=== PATIENT | female | born 1945 | race Caucasian/White ===

== ENCOUNTER 2023-07-08 11:33 | Emergency (ER) | payer MEDICARE, BC, SELFPAY ==
[2023-07-08 12:36] VITALS: BMI 38.9
[2023-07-08 12:49] VITALS: BP 118/91
[2023-07-08] MEDS: NSS 1000 IV (12:59)
[2023-07-08 13:00] VITALS: BP 124/93
[2023-07-08] MEDS: PEPCID 20 MG IV (13:00)
[2023-07-08] MEDS: ZOFRAN 4 MG IV (13:00)
[2023-07-08 13:14] LABS: % Basophils 0.3 % (0-2); % Eosinophils 2.4 % (0-6); % Immature Granulocytes 0.3 % (0-0.5); % Lymphocytes 9.6 % (20.5-51.1); % Monocytes 7.2 % (1.7-9.3); % Neutrophils 80.2 % (42.2-75.2); Absolute Eosinophils 0.2 10^3/uL (0-0.7); Absolute Lymphocytes 0.9 10^3/uL (1.2-3.4); Absolute Monocytes 0.7 10^3/uL (0.1-0.6); Absolute Neutrophils 7.3 10^3/uL (1.4-6.5); Hematocrit 38.7 % (37.0-47.0); Hemoglobin 13.3 g/dL (12.0-16.0); Mean Corp Hgb Conc. 34.4 g/dL (33.0-37.0); Mean Corpuscular Hgb 32.9 pg (27.0-31.0); Mean Corpuscular Volume 95.8 fL (81.0-99.0); Mean Platelet Volume 11.9 fL (7.4-10.4); Nucleated Red Blood Cells % 0 %; Platelet Count 171 10^3/uL (130-400); Red Blood Cell Count 4.04 10^6/uL (4.20-5.40); Red Cell Dist. Width 13.2 % (11.5-14.5); White Blood Cell Count 9.1 10^3/uL (4.8-10.8)
--- NOTE | 2023-07-08 13:16 | ED.GENMED ---
History of Present Illness
General
Chief Complaint: Abdominal Symptoms
Source: patient and family
Exam Limitations: none
Time Seen by Provider: 07/08/23 12:38
Nursing documentation reviewed up to this point in time: agreed with
Travel History
Have you had any contact with someone who has COVID-19?: No
Do you have any symptoms of coronavirus? Fever > 100 degrees, chills, cough, shortness of breath, sore throat, loss of taste or smell, muscle aches, or headache?: No
History of Present Illness
History of Present Illness:
78-year-old female with Yan history of asthma GERD thyroid disorder presenting to the emergency department today with concerns of intermittent vomiting diarrhea over the past 3 days also has had upper abdominal pain. Also noticed that her urine
appeared dark and potentially with blood. She claims that the nausea vomiting was very abrupt in onset 3 days ago and has been improving but does have some ongoing nausea. No vomiting today no significant diarrhea today. No chest pain shortness
of breath no fevers. No blood in the stool.
Past History
Past History
ED Past Medical History: Arrthythmia (paroxysmal a fib), GERD, Hypothyroidism and Other (IBS, paroxysmal atrial fib, hypothyroidism, hysterectomy, cholecystectomy)
Social History
Tobacco: Non-smoker
Alcohol: None
Personal:
Living: alone (family)
Family History
Family History: Negative Diabetes or Hypertension
Review of Systems
Review of Systems
Allergies reviewed?: Yes
All Other Systems: ROS reviewed and negative except as documented in HPI and ROS
Phy Exam
Physical Exam
Physical Exam:
GENERAL: Alert , in no apparent distress
EYE: pupils equal and reactive
NECK: Supple, no significant adenopathy.
ENT: o/p clr, mmm.
CARDIAC: Regular rate and rhythm .
LUNGS: Clear breath sounds bilaterally, no acute respiratory distress, no wheezes/rales/rhonchi
ABDOMEN: Soft, without focal tenderness, no r/g, no cvat
NEUROLOGICAL: Alert and oriented, no focal neuro deficits
SKIN: Warm and dry, skin intact.
MUSCULOSKELETAL: No edema, well perfused.
PSYCH: Normal and appropriate interaction.
Course
Orders/Labs/Results
Orders:
Orders
07/08/23 12:45
0.9% Sodium Chloride 1000 ml [Nss] 1,000 ml IV BOLUS
Famotidine [Pepcid] 20 mg IV NOW STA
Ondansetron Injectable [Zofran] 4 mg IV NOW STA
07/08/23 12:49
Complete Blood Count/With Diff Urgent
Comprehensive Metabolic Panel Urgent
Lipase Urgent
07/08/23 14:08
CT Abd/Pel (IV only)-DH only Urgent
Comment:
Reason For Exam: abd pain
07/08/23 14:16
Urinalysis Reflex To Culture Urgent
Date Specimen was Collected: 07/08/23
Time Specimen was Collected: 14:14
Urine Microscopic Reflex Cult Urgent
Urine Culture Urgent
GENNARO Source: U
Specimen Description:
Date Specimen was Collected: 07/08/23
Time Specimen was Collected: 14:14
Abnormal Lab Results
07/08/23 07/08/23
12:49 14:16
RBC 4.04 L 10^6/uL
(4.20-5.40)
MCH 32.9 H pg
(27.0-31.0)
MPV 11.9 H fL
(7.4-10.4)
Absolute Neuts (auto) 7.3 H 10^3/uL
(1.4-6.5)
Absolute Lymphs (auto) 0.9 L 10^3/uL
(1.2-3.4)
Absolute Monos (auto) 0.7 H 10^3/uL
(0.1-0.6)
Neutrophils % 80.2 H %
(42.2-75.2)
Lymphocytes % 9.6 L %
(20.5-51.1)
Chloride 108 H mmol/L
(98-107)
BUN 25 H mg/dl
(7-17)
Total Bilirubin 2.5 H mg/dl
(0.2-1.3)
AST 78 H U/L
(14-36)
ALT 354 H U/L
(0-35)
Alkaline Phosphatase 236 H U/L
(38-126)
Urine Ketones 1+ A
(Negative)
Ur Occult Blood Reflex 2+ A
(Negative)
Urine Nitrite (Reflex) Positive A
(Negative)
Urine Bilirubin 1+ A
(Negative)
Urine Urobilinogen 3+ A
(Neg - 1+)
Leukocyte Esterase Rfl 1+ A
(Negative)
Urine RBC 7-10 A /HPF
(0-2)
Urine Bacteria (Reflex) Many A
(Negative)
07/08/23 12:49
07/08/23 12:49
Vital Signs
Initial and Last Documented VS:
Initial Vital Signs
Temp Pulse Resp Pulse Ox
97.9 F 93 18 99
07/08/23 11:35 07/08/23 11:35 07/08/23 11:35 07/08/23 11:35
Last Documented Vital Signs
Temp Pulse Resp BP Pulse Ox
97.9 F 101 14 151/110 97
07/08/23 11:35 07/08/23 15:30 07/08/23 15:30 07/08/23 17:00 07/08/23 17:30
MDM/Problems Addressed
MDM/Problems Addressed:
78-year-old female presenting to the emergency department today with concerns of initial abrupt nausea vomiting diarrhea and upper abdominal pain 3 days ago that has been improving but noticed dark discoloration of her urine potential blood in the
urine today. Upon arrival here vital signs normal patient no obvious distress abdomen is soft and benign. Vomiting diarrhea that was abrupt in onset potentially consistent with stomach bug. Plan for labs patient given symptomatic medications
through the IV as well as fluids. CT scan without emergent findings labs were elevated but patient asymptomatic no abdominal tenderness generally well-appearing in no acute distress. Patient does have bacteria in her urine but 3-5 white blood
cells. Significant squamous epithelial cells. Will wait on culture for this patient denies significant urinary symptoms and was only concerned that her urine appeared darker than usual. Patient advised for repeated urine as an outpatient as well
as repeated labs. Otherwise stable for discharge.
*Critical Care Note
Total Time (30-74mins, 75-104mins- exclusive of procedures): Not Applicable
ED Attending Note
-
Portions of this chart may have been created with voice recognition software.� Occasional wrong word or��sound alike� substitutions may have occurred due to the inherent limitations of voice recognition software.
Discharge Plan
Departure
Patient Disposition: Home (Routine Discharge)
Date of Disposition: 07/08/23
Time of Disposition: 18:08
Patient with high blood pressure during this ER visit?: No
Condition: Good
Covid-19: Not Applicable
Discharge Problem:
Abnormal transaminases, Elevated bilirubin
Instructions: Abdominal Pain
Prescriptions:
No Action
levothyroxine 75 MCG tablet
75 mcg PO DAILY AT 0700
hr-snm-MJ-Au-Pr-hosnaui-lutein 1 EACH tablet
1 tab PO DAILY
acetaminophen [Tylenol Extra Strength] 500 MG tablet
1,000 mg PO TID
ascorbic acid (vitamin C) [Vitamin C] 500 MG tablet
500 mg PO DAILY
meclizine 25 MG tablet
25 mg PO Q8HPRN PRN (Reason: vertigo) Qty: 30 0RF
sucralfate 1 GRAM tablet
1 g PO DAILY
ipratropium-albuterol 0.5 mg-3 mg(2.5 mg base)/3 mL solution for nebulization
3 ml INHALATION R DAILY
omeprazole 40 mg capsule,delayed release(DR/EC)
40 mg PO DAILY
gabapentin 100 mg capsule
200 mg PO BID@0800,1430
gabapentin 100 mg capsule
300 mg PO HS
tramadol 50 mg Tablet
50 mg PO TID Qty: 6 0RF
Eliquis 5 MG tablet
5 mg PO BID Qty: 60 0RF
losartan 50 mg Tablet
50 mg PO BID Qty: 0 0RF
amlodipine 5 mg Tablet
5 mg PO BID Qty: 0 0RF
Referrals:
Cruz White MD [Family Provider] -
Activity Restrictions/Additional Instructions:
You came to the emergency department today with concerns of nausea vomiting and abdominal pain. Here you had a CT scan that did not show any emergent pathology. You did have elevated liver function test please have this repeated in the next week
or so to ensure this is improving. Otherwise your urine had some bacteria but did not appear to be consistent with obvious infection. Culture is pending if that is positive you will be contacted. Please have close with the primary care doctor.
Return to the emergency department for any worsening, new or concerning symptoms.
Interventions
Interventions:
*Risk Screen - Suicide Last Done: 07/08/23 12:36
*General Assessment Last Done: 07/08/23 11:35
*Neglect/Abuse Screening Last Done: 07/08/23 12:36
ED- Fall Risk Assessment Last Done: 07/08/23 12:37
*ED COVID-19 Vaccine History Last Done: 07/08/23 11:35
KZ-Vsqbdj-Jxjewikcll Assessment Last Done: 07/08/23 12:37
[2023-07-08 13:29] LABS: ALT (SGPT) 354 U/L (0-35); AST (SGOT) 78 U/L (14-36); Albumin 3.8 g/dl (3.5-5.0); Alkaline Phosphatase 236 U/L (38-126); Blood Urea Nitrogen 25 mg/dl (7-17); Calcium 9.8 mg/dl (8.4-10.2); Carbon Dioxide 25 mmol/L (22-30); Chloride 108 mmol/L (98-107); Estimated Creatinine Clearance 80 ml/min; Glucose 97 mg/dl (70-99); Lipase 260 U/L (23-300); Potassium 3.8 mmol/L (3.5-5.1); Sodium 137 mmol/L (135-145); Total Bilirubin 2.5 mg/dl (0.2-1.3); Total Protein 6.5 g/dl (6.3-8.2); eGFR > 60.00
[2023-07-08 14:30] LABS: Urine Albumin Trace (Neg - Trace); Urine Bilirubin 1+ (Negative); Urine Character Clear (Clear); Urine Color Amber; Urine Glucose Negative (Negative); Urine Ketone 1+ (Negative); Urine Leukocyte 1+ (Negative); Urine Nitrite Positive (Negative); Urine Occult Blood 2+ (Negative); Urine Urobilinogen 3+ (Neg - 1+)
[2023-07-08 14:52] LABS: Urine Bacteria Many (Negative); Urine Squamous Cell 26-30 /LPF (Few)
[2023-07-08 16:02] VITALS: BP 151/85
[2023-07-08 17:00] VITALS: BP 151/110
[2023-07-08 18:40] VITALS: BP 146/92
== END 2023-07-08 18:40 | disposition home or self-care (01) ==
LOC: EMR 11:33
PROVIDERS: Physician Assistant; EMERGENCY PHYSICIAN Emergency Medicine; FAMILY PHYSICIAN Family Medicine
DX: R74.01 Elevation of levels of liver transaminase levels (principal); R74.9 Abnormal serum enzyme level, unspecified; R17 Unspecified jaundice; R19.7 Diarrhea, unspecified; R11.2 Nausea with vomiting, unspecified; R10.10 Upper abdominal pain, unspecified; R31.9 Hematuria, unspecified
CPT/HCPCS: 99284; 96374; 96375; 96361; 74177; 80053; 81003; 81015; 83690; 85025; 87086; Q9967

== ENCOUNTER → 2023-10-25 10:44 | Outpatient (REF) | payer MEDICARE, BC, SELFPAY | LOC: RCS 10:44 | PROVIDERS: ATTENDING PHYSICIAN Physician Assistant; FAMILY PHYSICIAN Family Medicine | DX: R60.0 Localized edema (principal) | CPT/HCPCS: 93306 ==

== ENCOUNTER → 2024-01-26 11:36 | Outpatient (REF) | payer MEDICARE, BC, SELFPAY | LOC: RAD 11:36 | PROVIDERS: ATTENDING PHYSICIAN Family Medicine; REFERRING PHYSICIAN Internal Medicine Rheumatology | DX: M81.0 Age-related osteoporosis without current pathological fracture (principal) | CPT/HCPCS: 77080 ==